=== PATIENT | female | born 1950 | race Caucasian/White ===

== ENCOUNTER → 2023-09-07 11:23 | Outpatient (REF) | payer MEDICARE, SELFPAY | LOC: RAD 11:23 | PROVIDERS: ATTENDING PHYSICIAN Nurse Practitioner | DX: E78.5 Hyperlipidemia, unspecified (principal) | CPT/HCPCS: 75571 ==

== ENCOUNTER → 2023-09-11 13:06 | Outpatient (REF) | payer MEDICARE, SELFPAY | LOC: HWRAD 13:06 | PROVIDERS: ATTENDING PHYSICIAN Nurse Practitioner Women's Health; FAMILY PHYSICIAN Internal Medicine | DX: N95.0 Postmenopausal bleeding (principal) | CPT/HCPCS: 76830; 76856 ==

== ENCOUNTER → 2023-09-23 14:15 | Outpatient (REF) | payer MEDICARE, SELFPAY | LOC: HWRAD 14:15 | PROVIDERS: ATTENDING PHYSICIAN Surgery; FAMILY PHYSICIAN Nurse Practitioner | DX: N20.0 Calculus of kidney (principal) | CPT/HCPCS: 76775 ==

== ENCOUNTER → 2023-09-29 12:39 | Outpatient (REF) | payer MEDICARE, SELFPAY | LOC: RCS 12:39 | PROVIDERS: ATTENDING PHYSICIAN Nurse Practitioner | DX: R06.02 Shortness of breath (principal) | CPT/HCPCS: 93017; 93350 ==

== ENCOUNTER → 2023-12-01 11:52 | Outpatient (REF) | payer MEDICARE, SELFPAY | LOC: HWRAD 11:52 | PROVIDERS: ATTENDING PHYSICIAN Physician Assistant; FAMILY PHYSICIAN Internal Medicine | DX: L40.59 Other psoriatic arthropathy (principal); M06.4 Inflammatory polyarthropathy; M79.645 Pain in left finger(s); R76.11 Nonspecific reaction to tuberculin skin test without active tuberculosis | CPT/HCPCS: 71046; 73130; 73630 ==

== ENCOUNTER → 2023-12-12 09:16 | Outpatient (REF) | payer MEDICARE, SELFPAY | LOC: RCS 09:16 | PROVIDERS: ATTENDING PHYSICIAN Internal Medicine; FAMILY PHYSICIAN Nurse Practitioner | DX: R01.1 Cardiac murmur, unspecified (principal) | CPT/HCPCS: 93306 ==

== ENCOUNTER → 2024-02-29 15:43 | Outpatient (REF) | payer MEDICARE, SELFPAY | LOC: WDC 15:43 | PROVIDERS: ATTENDING PHYSICIAN Nurse Practitioner | DX: Z12.31 Encounter for screening mammogram for malignant neoplasm of breast (principal) | CPT/HCPCS: 77063; 77067 ==

== ENCOUNTER → 2024-05-12 12:49 | Outpatient (REF) | payer MEDICARE, SELFPAY | LOC: RAD 12:49 | PROVIDERS: ATTENDING PHYSICIAN Student in an Organized Health Care Education/Training Program; FAMILY PHYSICIAN Nurse Practitioner | DX: M81.0 Age-related osteoporosis without current pathological fracture (principal) | CPT/HCPCS: 77080 ==

== ENCOUNTER → 2024-05-16 09:41 | Outpatient (REF) | payer MEDICARE, SELFPAY ==
--- NOTE | 2024-04-15 15:15 | PN.DIAED02 ---
Referral
DSME Class Series Code: [id number]
Referred For: Diabetes Self-Management Training, Medical Nutrition Therapy, Self-Blood Glucose Monitoring, Long-Term Complication Instruction, Accute Complication Instruction, Continuous Glucose Monitoring, Medication management, Disease Management
PHI Release Authorization Form Signed: Yes
Patient Problems:
Current Active Problems
Problem Status Onset
Type 2 diabetes mellitus without complications
Demographic
(1) Type 2 diabetes mellitus without complications
Status: Acute Code(s): E11.9 - Type 2 diabetes mellitus without complications
Patient's primary language-: Burmese
Education: High school/GED
Occupation: Retired
- Social
Primary Support Person: Self
Primary Care Takers: Self
Living Arrangements: Self & spouse, Family
- Learning Methods
Preferred Method: Reading, Video, Group discussion
Barriers to Learning: Learning disability (ADHD easily distracted), Other
Glycemic Control
- Blood Glucose Monitoring Assessment
Date: 02/01/24 (FBS 111 mg/dL)
Blood glucose monitoring at home: No (trained on [employer] flex)
Patient uses Alternate Site Testing: No
Patient instructed on Use and Limitation: No
- Hyperglycemia Assessment
Experiences Hyperglycemia: No
- Hypoglycemia Assessment
Patient carries glucose source: No
- Hemoglobin A1c
Date: 01/20/24
A1C Percentage (%): 6.7
Medical History of Diabetes
Family Diabetes History: Grandmother
Previous Diabetes Education: No
Previous visit with Dietitian: No
Complications/Comorbidity/Specialist: Autoimmune (hypthyroid: Levothryoxine 150 mcg daily), Eating disorder (history of bulimia & anorexia), Gastrointestinal disease (IBS-treated with Low Fod Map diet ), Hypertension (no current medications),
Hyperlipidemia (Pravastatin NA 20 mg daily), Kidney / bladder disease (overactive bladder: Gemtesa 75 mg daily), Other / symptoms (Gout: allopurinol 100 mg QD, Anxiety & Depression: Lexapro 20 mg QD)
Current Home Medication
- Insulin Management
Patient adjusts own insulin dosages: No (Ozempic 50 mg weekly )
Measures
- Anthropometrics
Height: 5 ft 2 in
Actual Weight: 198 lb 9.6 oz
- Blood Pressure / Pulse
Blood pressure: 149/87 (recc to re-check at home and follow up with MD as needed)
Pulse: 81
- Diabetes Management
Medical Management for Diabetes: Complete physical exam (02/08/24), Dental exam (09/28/23), Dilated eye exam (05/04/23 next appt 04/2024), Other (Covid 12/26/20)
Self-Care
- Tobacco Usage
Do you now, or have you ever smoked?: Never smoked
- Alcohol & Drugs Usage
Drinks Alcohol: No
- Meals & Dining
Meals & Dining: Patient skips meals: Yes, Food Intolerance / Allergy: Yes (IBS & Gluten sensitivity), Cultural / Moravian Dietary Needs: No
Primary Food Ornamental Painter: Self
Primary Music Video Director: Child
Dining Out Frequency: 1-3x per week
- Physical Activity
Physical Limitation: No
- Patient-Self Assessment
Diabetes Knowledge: Good
Feelings About Diabetes: Adaptation
General Health: Good
Importance of Health: Extremely
Stress Level: Medium
Diabetes Interferes With:: Nothing
Barriers to Diabetes Management: Nothing
Depression Survey Score: 9
Care Plan
- Education Needs
Patient Education Needs: Diabetes disease process, Chronic complications, Acute complications, Medication, Monitoring, Physical activity, Psychosocial Adjustment, Nutritional management, Goal setting & problem solving
Recommended Diabetes Training Program based on assessment: Outpatient Diabetes Education Program
- Plan of Care
Plan of Care:
Cheryl presented for her initial assessment for the April DSME course. She was recently diagnosed with type 2 diabetes in January with an A1c of 6.7 %. Currently she is being treated with Ozempic 50 mg weekly. We reviewed blood glucose monitoring
and she was able to return demonstrate a fingerstick with a [employer] Ver[employer] flex meter. Her BG in the office 1 hour after eating was 132 mg/dL. We discussed target ranges and a schedule to monitor the glucose levels. Exercise was discussed and
encouraged in order to help lower glucose levels. Cheryl identified increasing activity as one of her goals. She does follow a gluten free diet and Low FodMAP meal plan for her IBS. Cheryl will contact the office with any concerns prior to the
April session.
--- NOTE | 2024-04-15 15:40 | PN.DIAED04 ---
Education Record
- Education Record
Class Attended: Other (initial DSME assessment)
DSME Class Series Code: [id number]
Instructor: Nurse Practitioner (ANAIS Montenegro)
Pre-Program Knowledge: Needs review / Assistance
Pre-Test Score (%): 78
Goals
- Goal 1
Being Active: Exercise more often (walk dogs around [place] )
Goals To Be Evaluated: Exercise more often
- Goal 2
Healthy Eating: Make better food choices, Follow meal plan
Goals To Be Evaluated: Make better food choices. Follow meal plan
- Goal 3
Monitoring: Follow monitoring schedule
Goals To Be Evaluated: Follow monitoring times
--- NOTE | 2024-05-18 13:12 | PN.DIAED14 ---
This is to notify you that your patient with diabetes, RADHA MORALES ( 1950), has enrolled in our diabetes self-management classes that are being held at [facility].
These classes will include an introduction to diabetes, diet, medication, exercise and prevention of complications. At the end of our class series, you will receive a report of your patient's participation and progress for your records.
Please contact me at the Diabetes Center, , if there is any particular information regarding your patient that might be helpful to me.
Sincerely,
Juna MANZO-CALDERON,[facility]
--- NOTE | 2024-05-18 13:12 | PN.DIAED04 ---
Education Record
- Education Record
Class Attended: Class 1
DSME Class Series Code: [id number]
Instructor: Nurse Practitioner (ANAIS Montenegro)
Class Curriculum:
Outpatient Diabetes Education Program:
Class 1 (120 minutes)
Describe the diabetes disease process and treatment options
Diabetes management
Develop personal strategies to promote health and behavior change
Integrate psychosocial adjustment for daily living
Monitor blood glucose and other parameters. Interpret and use the results for self-management decision making
Prevent, detect, and treat acute complications
Class Length (mins): 120
== END ==
LOC: DES 09:41
PROVIDERS: ATTENDING PHYSICIAN Nurse Practitioner
DX: E11.9 Type 2 diabetes mellitus without complications (principal)
CPT/HCPCS: 99078

== ENCOUNTER → 2024-05-23 09:15 | Outpatient (REF) | payer MEDICARE, SELFPAY ==
--- NOTE | 2024-05-24 15:39 | PN.DIAED04 ---
Education Record
- Education Record
Class Attended: Class 2
DSME Class Series Code: [id number]
Instructor: Registered Dietitian (Kimberley Covarrubias, RD, LDN, CDE)
Class Curriculum:
Outpatient Diabetes Education Program:
Class 2 (120 minutes)
Incorporate nutritional management into lifestyle
Understanding nutritional value
Understanding carbohydrate counting
Class Length (mins): 120
== END ==
LOC: DES 09:15
PROVIDERS: ATTENDING PHYSICIAN Nurse Practitioner
DX: E11.9 Type 2 diabetes mellitus without complications (principal)
CPT/HCPCS: 99078

== ENCOUNTER → 2024-05-30 08:14 | Outpatient (REF) | payer MEDICARE, SELFPAY ==
--- NOTE | 2024-05-31 09:06 | PN.DIAED04 ---
Education Record
- Education Record
Class Attended: Class 3
DSME Class Series Code: [id number]
Instructor: Registered Dietitian (Kimberley Covarrubias, RD, LDN, CDE)
Class Curriculum:
Outpatient Diabetes Education Program:
Class 3 (120 minutes)
Incorporate nutritional management into lifestyle
Class Length (mins): 120
Post-Class 2 & 3 Test Score (%): 100
== END ==
LOC: DES 08:14
PROVIDERS: ATTENDING PHYSICIAN Nurse Practitioner
DX: E11.9 Type 2 diabetes mellitus without complications (principal)
CPT/HCPCS: 99078

== ENCOUNTER → 2024-06-06 08:00 | Outpatient (REF) | payer MEDICARE, SELFPAY ==
--- NOTE | 2024-06-07 08:29 | PN.DIAED04 ---
Education Record
- Education Record
Class Attended: Class 4
DSME Class Series Code: [id number]
Instructor: Nurse Practitioner (ANAIS Montenegro)
Class Curriculum:
Outpatient Diabetes Education Program:
Class 4 (120 minutes)
Develop personal strategies to promote health and behavior change
Incorporate physical activity into lifestyle
Utilize medications safety for maximum therapeutic effectiveness
Understand different medication/insulin mechanism of action
Preparing for travel
Class Length (mins): 120
Post-Class 4 Test Score (%): 93
== END ==
LOC: DES 08:00
PROVIDERS: ATTENDING PHYSICIAN Nurse Practitioner
DX: E11.9 Type 2 diabetes mellitus without complications (principal)
CPT/HCPCS: 99078

== ENCOUNTER → 2024-06-13 09:38 | Outpatient (REF) | payer MEDICARE, SELFPAY ==
--- NOTE | 2024-06-15 15:05 | PN.DIAED04 ---
Education Record
- Education Record
Class Attended: Class 5
DSME Class Series Code: [id number]
Instructor: Nurse Practitioner (ANAIS Montenegro)
Class Curriculum:
Outpatient Diabetes Education Program:
Class 5 (120 minutes)
Prevent, detect, and treat acute complications
Prevent, detect, and treat chronic complications through risk reduction
Develop personal strategies to address psychosocial issues and concerns
Development of diabetes self-management support plan
Letter to physician with DSMS plan attached sent
Class Length (mins): 120
Post-Program Knowledge: Demonstrates competency
Post-Test Score (%): 95
Post-Program Assessment
- Post-Program Assessment
Actual Weight: 189 lb 3.2 oz
Blood pressure: 142/81
Post-Program Depression Survey Score: 4
Reviewing Previous Goals?: Yes
Pre-Program Depression Survey Score: 9
- Goals 1 Evaluation
Goals To Be Evaluated: Exercise more often
- Goals 2 Evaluation
Goals To Be Evaluated: Make better food choices. Follow meal plan
- Goals 3 Evaluation
Goals To Be Evaluated: Follow monitoring times
--- NOTE | 2024-06-15 15:06 | PN.DIAED16 ---
This is to notify you that your patient with diabetes, RADHA MORALES ( 1950), has attended the entire series of Diabetes Self-Management Education Classes.
Class 1 (120 minutes): Diabetes Overview - monitoring, stress/psychosocial adjustment, support, goal setting
Class 2 (120 minutes): Meal Planning - serving sizes, menu plans
Class 3 (120 minutes): Introduction to Carbohydrate Counting, Analyzing Food Labels
Class 4 (120 minutes): Medication, Exercise and Activity
Class 5 (120 minutes): Sick Day Management, Strategies to Reduce Complications, Problem Solving, Resources
The following behavioral goals were identified:
Exercise more often
Make better food choices
Follow meal plan
Follow monitoring times
A follow-up call will be made within three to six months to evaluate attainment of these goals and to check post-program Hemoglobin A1c and overall progress. All class participants are encouraged to contact me if I can be any further assistance in
learning how to manage their diabetes.
Sincerely,
Juan MANZO-, [facility]
== END ==
LOC: DES 09:38
PROVIDERS: ATTENDING PHYSICIAN Nurse Practitioner
DX: E11.9 Type 2 diabetes mellitus without complications (principal)
CPT/HCPCS: 99078

== ENCOUNTER → 2024-08-08 08:25 | Outpatient (REF) | payer MEDICARE, SELFPAY | LOC: REG 08:25 | PROVIDERS: ATTENDING PHYSICIAN Student in an Organized Health Care Education/Training Program; FAMILY PHYSICIAN Nurse Practitioner | DX: E55.9 Vitamin D deficiency, unspecified (principal); E66.3 Overweight; G89.29 Other chronic pain; L40.50 Arthropathic psoriasis, unspecified; L40.59 Other psoriatic arthropathy; L40.9 Psoriasis, unspecified; M17.0 Bilateral primary osteoarthritis of knee; M19.041 Primary osteoarthritis, right hand; M19.042 Primary osteoarthritis, left hand; M25.50 Pain in unspecified joint; M25.561 Pain in right knee; M46.90 Unspecified inflammatory spondylopathy, site unspecified; M79.645 Pain in left finger(s); M81.0 Age-related osteoporosis without current pathological fracture; R76.11 Nonspecific reaction to tuberculin skin test without active tuberculosis; N96 Recurrent pregnancy loss; R79.82 Elevated C-reactive protein (CRP); Z11.1 Encounter for screening for respiratory tuberculosis; Z51.81 Encounter for therapeutic drug level monitoring; Z51.89 Encounter for other specified aftercare; Z79.899 Other long term (current) drug therapy | CPT/HCPCS: 72072 ==

== ENCOUNTER → 2025-03-01 12:36 | Outpatient (REF) | payer MEDICARE, SELFPAY | LOC: WDC 12:36 | PROVIDERS: ATTENDING PHYSICIAN Nurse Practitioner | DX: Z12.31 Encounter for screening mammogram for malignant neoplasm of breast (principal) | CPT/HCPCS: 77063; 77067 ==